=== PATIENT | female | born 1995 | race Caucasian/White ===

== ENCOUNTER 2021-12-28 22:02 | Emergency (ER) | payer BC ==
[~2021-12-28] VITALS: Ht 167.6 cm; Wt 63.5 kg
--- NOTE | 2021-12-28 22:20 | NUR ---
Dr Maldonado at bedside, MSE in progress.
[2021-12-28] MEDS ORDERED: DEXAMETHASONE SOD PHOSPHATE 4 MG INJ IV ONE (23:00)
[2021-12-28] MEDS ORDERED: IV NORMAL SALINE 1000 ML BAG IV ONE (23:00)
[2021-12-28 23:14] LABS: HEMATOCRIT 34.2 % (31.2-41.9); MEAN CORPUSCULAR HEMOGLOBIN 30.7 uug (24.7-32.8); MEAN CORPUSCULAR VOLUME 86.4 fL (75.5-95.3); PLATELET COUNT (AUTO) 183 K/uL (179-408)
[2021-12-28] MEDS ORDERED: DEXAMETHASONE SOD PHOSPHATE 10 MG INJ ONE (23:17)
[2021-12-28 23:20] LABS: CARBON DIOXIDE 23 mmol/L (21-32); CHLORIDE 102 mmol/L (98-107); GLUCOSE 100 mg/dL (74-106); POTASSIUM 3.4 mmol/L (3.5-5.1); UREA NITROGEN, BLOOD 10 mg/dL (7-18)
[2021-12-28 23:28] LABS: ALANINE AMINOTRANSFERASE 17 U/L (14-59); ALKALINE PHOSPHATASE 48 U/L (50-136); ASPARTATE AMINOTRANSFERASE 11 U/L (15-37); BILIRUBIN,DIRECT 0.1 mg/dL (0.0-0.2); BILIRUBIN,TOTAL 0.3 mg/dL (0.2-1.0); TOTAL PROTEIN, SERUM 7.4 g/dL (6.4-8.2)
[2021-12-29] MEDS ORDERED: KETOROLAC TROMETHAMINE 15 MG INJ ONE (00:13)
[2021-12-29] MEDS ORDERED: PRED50TA PO (00:15)
[2021-12-29] MEDS ORDERED: AZIT500T PO (00:15)
[2021-12-29] MEDS ORDERED: paxlovid PO (00:15)
[2021-12-29] MEDS ORDERED: KETOROLAC TROMETHAMINE 15 MG INJ IVP ONE (00:15)
--- NOTE | 2021-12-29 00:39 | NUR ---
Patient discharged to home in stable condition. Written and verbal after care instructions given. Patient verbalizes understanding of instructions. Stressed follow up or return to ER for worsening s/s. pt ambulated wtih steady giat. denies pain. no SOB. no chest pain. AOx4
[2021-12-29 00:41] VITALS: BP 127/57
== END 2021-12-29 00:42 | disposition home or self-care (01) ==
LOC: ER 22:02
DX: U07.1 COVID-19 (principal); M79.10 Myalgia, unspecified site; R11.2 Nausea with vomiting, unspecified; Z88.2 Allergy status to sulfonamides
CPT/HCPCS: 36415; 71045; 80048; 80076; 83605; 84145; 84484; 85025; 87040 ×2; 87426; 96361; 96374; 96375; 99284; J1100; J1885; J7040 ×2; A4663